=== PATIENT | female | born 1995 | race Caucasian/White ===

== ENCOUNTER 2016-09-17 12:10 | Emergency (ER) | payer MEDICAID, OTHER ==
[2016-09-17 12:32] VITALS: TEMP 98.4; BMI 25.6
[2016-09-17] MEDS ORDERED: ONDANSETRON HCL 4 MG ODT TAB PO ONE (13:19)
[2016-09-17] MEDS ORDERED: OXYCODONE HCL 5 MG TABLET PO ONE (13:19)
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
[2016-09-17 15:11] VITALS: BP 112/64; PULSE 86
== END 2016-09-17 15:05 | disposition home or self-care (01) ==
LOC: ED 12:10
DX: S50.812A Abrasion of left forearm, initial encounter (principal); V49.9XXA Car occupant (driver) (passenger) injured in unspecified traffic accident, initial encounter; Y93.9 Activity, unspecified; Y92.410 Unspecified street and highway as the place of occurrence of the external cause
CPT/HCPCS: 73080; 73090; 73130; 99283; J3490